=== PATIENT | female | born 1985 | race African-American/Black ===

== ENCOUNTER 2024-06-11 06:38 | Emergency (ER) | payer SELFPAY ==
[~2024-06-11] VITALS: Ht 162.6 cm; Wt 163.3 kg
[2024-06-11] MEDS: SODIUM CHLORIDE 0.9% 1000ML 1,000 ML IV STA (07:18)
[2024-06-11] MEDS: ONDANSETRON HCL INJ 2MG/ML 2ML 2 MG/ML VIAL IV STA (07:19)
[2024-06-11] MEDS: FAMOTIDINE 20 MG/2 ML VIAL IV STA (07:19)
[2024-06-11] MEDS ORDERED: IOPAMIDOL 370 MG/ML 100 ML INFUS..BTL INJ ONE (07:37)
[2024-06-11] MEDS ORDERED: PROTONIX20 MG PO (09:30)
[2024-06-11] MEDS ORDERED: ONDANSETRON ODT4 MG PO (09:30)
[2024-06-11 09:45] VITALS: PULSE 65; RESP 16; TEMP 98.3; O2SAT 100
== END 2024-06-11 09:45 | disposition home or self-care (01) ==
LOC: FSED 06:59
DX: R10.33 Periumbilical pain (principal); K57.90 Diverticulosis of intestine, part unspecified, without perforation or abscess without bleeding; R11.2 Nausea with vomiting, unspecified; R19.7 Diarrhea, unspecified; E03.9 Hypothyroidism, unspecified; G47.00 Insomnia, unspecified
CPT/HCPCS: 74177; 80048; 80076; 81003; 81025; 85025; 99283; J2405; J7030; Q9967

== ENCOUNTER 2024-07-27 02:30 | Emergency (ER) | payer OTHER ==
[~2024-07-27] VITALS: Ht 162.6 cm; Wt 158.8 kg
[~2024-07-27 02:30] MED LIST: ONDANSETRON ODT4 MG PO; PROTONIX20 MG PO
[2024-07-27 02:35] VITALS: PULSE 69; RESP 18; TEMP 97.9; O2SAT 98
[2024-07-27] MEDS: PREDNISONE 20 MG TAB PO ONE (03:25)
[2024-07-27] MEDS: KETOROLAC TROMETHAMINE 60 MG/2 ML VIAL IM ONE (03:26)
[2024-07-27] MEDS ORDERED: PREDNISONE50 MG PO (03:41)
[2024-07-27] MEDS ORDERED: CYCLOBENZAPRINE10 MG PO (03:42)
[2024-07-27] MEDS ORDERED: NAPROSYN500 MG PO (03:43)
== END 2024-07-27 04:00 | disposition home or self-care (01) ==
LOC: FSED 02:37
DX: S39.012A Strain of muscle, fascia and tendon of lower back, initial encounter (principal); M54.16 Radiculopathy, lumbar region; E03.9 Hypothyroidism, unspecified; E66.8 Other obesity; G47.00 Insomnia, unspecified
CPT/HCPCS: 81003; 81025; 99283; J1885; J7512